=== PATIENT | male | born 1945 | race Caucasian/White ===

== ENCOUNTER → 2017-08-19 | Outpatient (CLI) | payer MEDICARE, BC ==
[~2017-08-19] MED LIST: ACE325 PO; AMBIEN; ASPI-1471 PO; IBU200 PO; IBUPROFEN; LUNESTA; MULT1CAP59 PO; PNEI IJ; TYLENOL; ZOL5 PO
--- NOTE | 2017-08-19 08:15 | RADIOLOGY IMAGING REPORT ---
FACILITY: [facility] PATIENT NAME: Javier Loyola : 1945 MR: [id number] V: [id number] EXAM DATE: ORDERING PHYSICIAN: IBETH PARRISH TECHNOLOGIST: Location: [facility] [place] Patient: Javier Loyola : 1945 Visit/Account:[id number] Date of Sevice: 08/19/2017 AORTA HISTORY: f/hx of AAA COMPARISON: None. FINDINGS: Suprarenal abdominal aorta: 2.9 x 2.5 cm Infrarenal abdominal aorta: 1.9 x 2.0 cm greatest AP and transverse dimensions. Aorta wall/mural thrombus: Atherosclerosis without visualized mural thrombus. Proximal common iliac artery diameters: Left 12 mm; right 14 mm. Aorta and proximal common iliac arteries are patent by duplex Doppler ultrasound. Incidental note is made of a right renal cyst measuring up to 3.9 cm IMPRESSION: 1. Negative for AAA. 2. 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 3. Ectasia of the right common iliac artery measuring up to 1.4 cm. Report Dictated By: Mario Gonzalez MD at 08/19/2017 8:08 AM Report E-Signed By: Mario Gonzalez MD at 08/19/2017 8:11 AM [id number]
== END ==
LOC: US 00:24
PROVIDERS: ATTEND Internal Medicine
DX: I77.811 Abdominal aortic ectasia (principal)
CPT/HCPCS: 93978